=== PATIENT | female | born 1965 | race Caucasian/White ===

== ENCOUNTER 2017-03-14 20:55 | Emergency (ER) | payer OTHER ==
[2017-03-14 21:14] VITALS: TEMP 98.2; BMI 26.4
--- NOTE | 2017-03-14 23:05 | PDOC ---
History of Present Illness - General History Source: Patient Exam Limitations: No Limitations - History of Present Illness Initial Comments: 03/14/17 23:08 The patient is a 51 year old female, with a significant past medical history of irregular heartbeat, asthma, anemia and hyperlipidemia, who presents to the emergency department with headache, palpitations and shortness of breath onset for the last couple of days. She reports that her headache usually starts first , which she describes as ranging from mild to moderate, without radiation or modifying factors. She notes that she then notices that her heart starts racing and she becomes short of breath. She reports that she does follow up with a machine loader and tried calling him today but was unable to reach him prompting her to come to the ED. The patient denies chest pain, headache and dizziness. Denies fever, chills, nausea, vomit, diarrhea and constipation. Denies dysuria, frequency, urgency and hematuria. Allergies: Codeine and Aspirin Past surgical history: Noen reported Social history: No alcohol, tobacco or drug use reported Clinical Partner - Dr. Maloney <Agusto Antonio - Last Filed: 03/14/17 23:08> - General History Source: Patient <Agusto Piña - Last Filed: 03/15/17 01:20> - General Chief Complaint: Headache Stated Complaint: BLOOD PRESSURE PROBLEM Time Seen by Provider: 03/14/17 22:59 Past History <Agusto Antonio - Last Filed: 03/14/17 23:08> - Past Medical History Anemia: Yes Asthma: Yes Cancer: No Cardiac Disorders: Yes (irregular heart beat) CVA: No COPD: No CHF: No Dementia: No Diabetes: No GI Disorders: No Disorders: No HTN: No Hypercholesterolemia: Yes Liver Disease: No Seizures: No Thyroid Disease: No - Surgical History Abdominal Surgery: No Appendectomy: No Cardiac Surgery: No Cholecystectomy: No Lung Surgery: No Neurologic Surgery: No Orthopedic Surgery: No - Immunization History Td Vaccination: Yes Immunization Up to Date: No - Suicide/Smoking/Psychosocial Hx Smoking Status: No Smoking History: Never smoked Number of Cigarettes Smoked Daily: 0 Hx Alcohol Use: No Drug/Substance Use Hx: No Substance Use Type: None <Agusto Piña - Last Filed: 03/15/17 01:20> - Past Medical History Allergies/Adverse Reactions: Allergies Allergy/AdvReac Type Severity Reaction Status Date / Time aspirin Allergy Severe Hives Verified 03/14/17 21:08 codeine [Codeine] Allergy Severe Vomiting Verified 03/14/17 21:08 Home Medications: Ambulatory Orders No Home Medications 0 dose .ROUTE UTDICT 05/15/12 Review of Systems - Review of Systems Able to Perform ROS?: Yes Comments:: 03/14/17 23:09 GENERAL/CONSTITUTIONAL: No fever or chills. No weakness. HEAD, EYES, EARS, NOSE AND THROAT: No change in vision. No ear pain or discharge. No sore throat.- CARDIOVASCULAR: (+) Palpitations, Shortness of breath. No chest pain RESPIRATORY: No cough, wheezing, or hemoptysis. GASTROINTESTINAL: No nausea, vomiting, diarrhea or constipation. GENITOURINARY: No dysuria, frequency, or change in urination. MUSCULOSKELETAL: No joint or muscle swelling or pain. No neck or back pain. SKIN: No rash NEUROLOGIC: (+) Headache. No vertigo, loss of consciousness, or change in strength/sensation. ENDOCRINE: No increased thirst. No abnormal weight change HEMATOLOGIC/LYMPHATIC: No anemia, easy bleeding, or history of blood clots. ALLERGIC/IMMUNOLOGIC: No hives or skin allergy. <Agusto Antonio - Last Filed: 03/14/17 23:08> *Physical Exam - Vital Signs Last Vital Signs Temp Pulse Resp BP Pulse Ox 98.2 F 92 H 18 120/70 96 03/14/17 21:08 03/14/17 21:08 03/14/17 21:08 03/14/17 21:08 03/14/17 21:08 - Physical Exam Comments: 03/14/17 23:09 GENERAL: Awake, alert, and fully oriented, in no acute distress HEAD: No signs of trauma, normocephalic, atraumatic EYES: PERRLA, EOMI, sclera anicteric, conjunctiva clear ENT: Auricles normal inspection, hearing grossly normal, nares patent, oropharynx clear without exudates. Moist mucosa NECK: Normal ROM, supple, no lymphadenopathy, JVD, or masses LUNGS: No distress, speaks full sentences, clear to auscultation bilaterally HEART: Regular rate and rhythm, normal S1 and S2, no murmurs, rubs or gallops, peripheral pulses normal and equal bilaterally. ABDOMEN: Soft, nontender, normoactive bowel sounds. No guarding, no rebound. No masses EXTREMITIES : Normal inspection, Normal range of motion, no edema. No clubbing or cyanosis. NEUROLOGICAL: Cranial nerves II through XII grossly intact. Normal speech, normal gait, no focal sensorimotor deficits SKIN: Warm, Dry, normal turgor, no rashes or lesions noted. <Agusto Antonio - Last Filed: 03/14/17 23:08> - Vital Signs Last Vital Signs Temp Pulse Resp BP Pulse Ox 98.2 F 92 H 18 120/70 96 03/14/17 21:08 03/14/17 21:08 03/14/17 21:08 03/14/17 21:08 03/14/17 21:08 <Agusto Piña - Last Filed: 03/15/17 01:20> ED Treatment Course - LABORATORY CBC & Chemistry Diagram: 03/14/17 23:30 03/14/17 23:30 <Agusto Piña - Last Filed: 03/15/17 01:20> Medical Decision Making - Medical Decision Making 03/15/17 01:17 Dr. Piña: The scribe's documentation has been prepared under my direction and personally reviewed by me in its entirery. I confirm that the note above accurately reflects all work, treatment, procedures, and medical decision making performed by me. Pt with h/o palpitations. Presents because she was concerned, as she has not seen her machine loader in some time. Ekg and Labs all stable. VSS. Pt advised to follow with her machine loader <Agusto Piña - Last Filed: 03/15/17 01:20> *DC/Admit/Observation/Transfer - Attestations Scribe Attestion: 03/14/17 23:09 Documentation prepared by Agusto Antonio, acting as director of medical staff services for Agusto Piña MD <Agusto Antonio - Last Filed: 03/14/17 23:08> - Discharge Dispostion Admit: No <Agusto Piña - Last Filed: 03/15/17 01:20> Diagnosis at time of Disposition: Palpitations - Discharge Dispostion Disposition: HOME Condition at time of disposition: Stable - Referrals Referrals: Gaurang Rodriguez MD [Primary Care Provider] - Sunil Maloney MD [Staff Physician] - - Patient Instructions Printed Discharge Instructions: DI for Palpitations Additional Instructions: Please follow with your machine loader as soon as possible. Return if any problems
[2017-03-14 23:40] LABS: BASOPHIL 0.7 % (0-2.0); EOSINOPHIL 0.9 % (0-4.5); MCH 29.5 pg (25.7-33.7); MCHC 33.7 g/dl (32.0-36.0); MEAN CELL VOLUME 87.8 fl (80-96); MEAN PLT VOLUME 8.3 fl (7.5-11.1); NEUTROPHILS 69.6 % (42.8-82.8); PLATELET COUNT 235 K/MM3 (134-434); RDW 15.2 % (11.6-15.6); WHITE BLOOD COUNT 5.6 K/mm3 (4.0-10.0)
[2017-03-15] LABS: INR 0.95 (0.82-1.09); PROTHROMBIN TIME (PATIENT) 10.7 SEC (9.98-11.88)
[2017-03-15 00:13] LABS: ANION GAP 7 (8-16); BILIRUBIN,TOTAL 0.3 mg/dL (0.2-1.0); CALCIUM 8.8 mg/dL (8.5-10.1); CO2 27 mmol/L (21-32); CREATININE 0.6 mg/dL (0.55-1.02); GLUCOSE,RANDOM 91 mg/dL (74-106); SGOT/AST 17 U/L (15-37); SGPT/ALT 20 U/L (12-78); TOT PROT 7.7 g/dl (6.4-8.2)
[2017-03-15 00:16] LABS: ALK PHOS 73 U/L (45-117); CPK 67 IU/L (26-192); TROPONIN I < 0.02 ng/ml (0.00-0.05)
[2017-03-15 00:26] VITALS: BP 116/59; PULSE 84
[2017-03-15] MEDS ORDERED: IBUPROFEN 400 MG TABLET (FP) PO ONE (00:28)
--- NOTE | 2017-03-15 11:42 | EKG ---
Test Reason : Blood Pressure : / mmHG Vent. Rate : 074 BPM Atrial Rate : 074 BPM P-R Int : 160 ms QRS Dur : 076 ms QT Int : 368 ms P-R-T Axes : 041 009 008 degrees QTc Int : 408 ms NORMAL SINUS RHYTHM CANNOT RULE OUT ANTERIOR INFARCT , AGE UNDETERMINED ABNORMAL ECG WHEN COMPARED WITH ECG OF 16-JAN-2015 18:07, NONSPECIFIC T WAVE ABNORMALITY, WORSE IN ANTERIOR LEADS Confirmed by SHANICE SIDDIQUI, AMANDEEP ([id number]) on 03/15/2017 11:41:52 AM Referred By: Confirmed By:AMANDEEP PRASAD MD
== END 2017-03-15 01:27 | disposition home or self-care (01) ==
LOC: JER 20:55
DX: R00.2 Palpitations (principal); J45.909 Unspecified asthma, uncomplicated; D64.9 Anemia, unspecified; E78.00 Pure hypercholesterolemia, unspecified
CPT/HCPCS: 36415; 80053; 81003; 82550; 83735; 84484; 84703; 85025; 85610; 93005; 93010; 99283-25

== ENCOUNTER 2020-01-23 12:15 | Day surgery (SDC) | payer OTHER ==
[2020-01-22 14:24] VITALS: BMI 26.5
[2020-01-23] MEDS ORDERED: ROPIVACAINE HCL 0.5% 30ML VIAL ONE (13:20)
[2020-01-23] MEDS ORDERED: MIDAZOLAM HCL 2 MG/2 ML SINGLE DOSE VIAL ONE ×3 (13:20→16:11)
[2020-01-23] MEDS ORDERED: PROPOFOL 20 ML ONE (16:03)
[2020-01-23] MEDS ORDERED: GUM MASTIC/STORAX/MSAL/ALCOHOL 1 DRP DROPSBTL MC ONE (16:51)
[2020-01-23] MEDS ORDERED: oxyCODONE HCL 5 MG TABLET PO PRN (17:16)
[2020-01-23] MEDS ORDERED: PROMETHAZINE HCL 25 MG/1 ML VIAL IVPUSH PRN (17:16)
[2020-01-23] MEDS ORDERED: ONDANSETRON 4 MG/2 ML VIAL IVPUSH PRN (17:16)
[2020-01-23] MEDS ORDERED: LACTATED RINGERS SOLUTION 1,000 ML IV SCH (17:30)
--- NOTE | 2020-01-23 17:44 | OP ---
DATE OF OPERATION: 01/23/2020 PREOPERATIVE DIAGNOSIS: Left comminuted intraarticular displaced distal radius fracture. POSTOPERATIVE DIAGNOSIS: Left comminuted intraarticular displaced distal radius fracture. OPERATIVE PROCEDURE: Open reduction, internal fixation of left comminuted intraarticular displaced distal radius fracture with internal fixation of 3 or more fragments. SURGEON: Katia Woodall MD. ALIGNER: KARY Turner. ANESTHESIA: Regional. COMPLICATIONS: None. ESTIMATED BLOOD LOSS: Minimal. INDICATION FOR PROCEDURE: The patient is a now with the above findings, indicated for operative treatment. Risks, benefits, and alternatives were discussed with the patient at length. Proper informed consent was obtained. DESCRIPTION OF PROCEDURE: After proper identification of the patient and correct operative site, patient was brought to the operating room and placed supine on the operating room table, all bony prominences well padded. Sedation and regional anesthesia was given, intravenous antibiotics were given. Timeout procedure was performed. Left upper extremity was prepped and draped in the usual sterile fashion. Well padded tourniquet was placed with a sterile prep. Esmarch bandage to exsanguinate the left upper extremity. Tourniquet inflated to 250 mmHg. Longitudinal incision was made over the flexor carpi radialis tendon. Incision was taken sharply through the skin. Blunt dissection was performed to the subcutaneous tissue, flexor carpi radialis tendon as well as the contents of the carpal canal were bluntly and sharply retracted in an ulnarward direction for the remainder of the procedure. The pronator quadratus was found to be ruptured and was elevated off the distal radius. Fracture was found to be highly comminuted and significantly displaced. Intraarticular portion was also noted. Radial styloid would not reduce due to the brachioradialis, therefore a brachioradialis tenotomy was performed in a subperiosteal fashion. This allowed full reduction of the fascia into satisfactory position. It was held with an Arthrex distal radius locking plate with proximal nonlocking screws and distal locking screws. This provided secure, stable fixation confirmed radiographically. Radiographs were also used to confirm proper placement and size of all hardware. Distal was stressed and found to be stable. The wound was irrigated and repaired in layers including the pronator quadratus where possible with a 4-0 Vicryl and 4-0 Monocryl suture placed, sterile dressings were applied, splint was placed, patient was reversed from anesthesia and brought to recovery room in stable condition. She tolerated the procedure well. Mark Ascencio, the assistant laboratory director, was integral throughout the procedure. He was necessary to hold the reduction while hardware was placed. Procedure could not have been performed without his assistance. KATIA WOODALL M.D. [id number]
[2020-01-23 18:44] VITALS: BP 125/78; PULSE 85; TEMP 98.3
== END 2020-01-23 19:20 | disposition home or self-care (01) ==
LOC: FASU 12:15
PROVIDERS: ATTEND Orthopaedic Surgery Hand Surgery
PROC: 0LN50ZZ Release Right Lower Arm and Wrist Tendon, Open Approach (ICD-10-PCS; 2020-01-23)
PROC: 0PSJ04Z Reposition Left Radius with Internal Fixation Device, Open Approach (ICD-10-PCS; principal; 2020-01-23 16:20)
DX: S52.532A Colles' fracture of left radius, initial encounter for closed fracture (principal); X58.XXXA Exposure to other specified factors, initial encounter; Y93.9 Activity, unspecified; Y92.9 Unspecified place or not applicable
CPT/HCPCS: 25290; 25609; C1713; 73110-TC-LT-FY; 94760